=== PATIENT | female | born 1990 | race Asian ===

== ENCOUNTER 2018-05-30 07:17 | Emergency (ER) | payer BC ==
[~2018-05-30] VITALS: Ht 157.5 cm; Wt 72.0 kg
[2018-05-30] MEDS ORDERED: FAMOTIDINE 20MG/2ML VIAL IV STA (07:32)
[2018-05-30] MEDS ORDERED: DICYCLOMINE 10 MG/5 ML ORAL SYR PO STA (07:32)
[2018-05-30] MEDS ORDERED: KETOROLAC 30MG/ML VIAL IV STA (07:32)
[2018-05-30] MEDS ORDERED: SODIUM CHLORIDE 0.9% 1,000 ML IV ONE (07:32)
[2018-05-30] MEDS ORDERED: LOPERAMIDE 2 MG/10 ML UDC PO ONE (07:45)
[2018-05-30 07:59] LABS: BASOPHILS % 0.5 % (0.0-2.0); EOSINOPHILS % 1.6 % (0.0-5.0); HEMATOCRIT. 46.8 % (36.0-48.0); HEMOGLOBIN. 15.7 g/dL (12.0-16.0); LYMPHOCYTES % 24.7 % (20.0-50.0); MEAN CORPUSCULAR HEMOGLOBIN 31.2 pg (28.0-32.0); MEAN CORPUSCULAR VOLUME 93.3 fL (81.0-99.0); MEAN PLATELET VOLUME 9.1 fl (7.4-10.4); MONOCYTES % 9.7 % (2.0-8.0); NEUTROPHILS % 63.5 % (40.0-76.0); PLATELET 257 x1000/uL (130-400); RED BLOOD CELL COUNT 5.02 mill/uL (4.2-5.4); RED CELL DISTRIBUTION WIDTH 12.4 % (11.6-14.6)
[2018-05-30 08:05] LABS: CHLORIDE 106 mEq/L (98-107)
[2018-05-30 08:07] LABS: CLARITY URINE CLOUDY (CLEAR); COLOR URINE YELLOW (YELLOW); KETONES URINE 1+ (NEGATIVE); NITRITE URINE NEGATIVE (NEGATIVE); OCCULT BLOOD URINE NEGATIVE (NEGATIVE); PH URINE 5.5 (4.5-8.0); PROTEIN URINE TRACE (NEGATIVE); SPECIFIC GRAVITY URINE 1.032 (1.005-1.030)
[2018-05-30 08:08] LABS: HCG SCREEN NEGATIVE; LEUKOCYTE ESTERASE URINE NEGATIVE (NEGATIVE)
[2018-05-30 08:15] LABS: PROTHROMBIN TIME 9.8 sec (9.1-11.1)
[2018-05-30] MEDS ORDERED: LOPERAMIDE 2 MG/10 ML UDC PO SCH (08:15)
[2018-05-30] MEDS ORDERED: MAGNESIUM/ALUMINUM HYDROXIDE/SIMETHICONE 30ML UDC PO ONE (09:30)
[2018-05-30 10:41] VITALS: BP 101/64
== END 2018-05-30 10:47 | disposition home or self-care (01) ==
LOC: ER 07:17
DX: R10.13 Epigastric pain (principal); R11.10 Vomiting, unspecified; R19.7 Diarrhea, unspecified; R03.0 Elevated blood-pressure reading, without diagnosis of hypertension; J45.909 Unspecified asthma, uncomplicated
CPT/HCPCS: 36415; 74176; 80053; 81003; 81025; 83690; 84703; 85025; 85610; 96361; 96374; 96375; 99284; J1885; J3490; J7030